=== PATIENT | male | born 2000 | race Two or more races ===

== ENCOUNTER 2025-02-19 14:54 | Emergency (ER) | payer MEDICAID ==
[~2025-02-19] VITALS: Ht 177.8 cm; Wt 86.2 kg
[2025-02-19 15:02] VITALS: TEMP 97.9
[2025-02-19] MEDS: LIDOCAINE VISCOUS 2% UD 15 ML UDC MM ONE (16:33)
[2025-02-19] MEDS ORDERED: dexaMETHasone SOD PHOSPHATE 1 ML ONE (17:32)
[2025-02-19] MEDS ORDERED: KETOROLAC TROMETHAMINE INJ 30 MG/ML VIAL ONE (17:32)
[2025-02-19] MEDS: KETOROLAC TROMETHAMINE INJ 30 MG/ML VIAL IM ONE (17:35)
[2025-02-19] MEDS: dexaMETHasone SOD PHOSPHATE 10 MG/ML VIAL IM ONE (17:35)
[2025-02-19] MEDS ORDERED: PIPERACI/TAZO 3.375GM/D5W 50ML PB IV ONE (18:03)
[2025-02-19] MEDS: PIPERACILLIN /TAZOBACTAM 3.375 G in IV D5W 50 ML IV ONE (18:05)
[2025-02-19] MEDS ORDERED: IOHEXOL-300 100 ML VIAL IV ONE (18:10)
[2025-02-19] MEDS ORDERED: IV NS 0.9% 250 ML IV ONE (18:11)
[2025-02-19 18:13] LABS: CALCIUM, SERUM 9.1 mg/dL (8.5-10.1); CREATININE 0.8 mg/dL (0.6-1.3); PLATELET COUNT (AUTO) 354 K/uL (150-450); RED BLOOD CELL COUNT(AUTO) 5.17 MIL/uL (4.5-6.0); RED CELL DISTRIBUTION WIDTH 13.5 % (11.5-15.0); SODIUM SERUM 137.0 mmol/L (136-145); UREA NITROGEN, BLOOD 11.0 mg/dL (7-18); WHITE BLOOD COUNT (AUTO) 18.7 K/uL (4.3-11.0)
[2025-02-19 18:19] LABS: ASPARTATE AMINOTRANSFERASE 17.0 U/L (15-37); TOTAL PROTEIN, SERUM 8.2 g/dL (6.4-8.2)
[2025-02-19] MEDS ORDERED: AMOX-430 PO (21:18)
[2025-02-19] MEDS ORDERED: IBUP-1953 PO (21:18)
[2025-02-19 21:40] VITALS: BP 120/70; O2SAT 98
[2025-02-20] MEDS ORDERED: dexaMETHasone SOD PHOSPHATE 1 ML ONE (14:08)
[2025-02-20] MEDS ORDERED: KETOROLAC TROMETHAMINE INJ 30 MG/ML VIAL ONE (14:08)
== END 2025-02-19 21:31 | disposition home or self-care (01) ==
LOC: ER 15:03
DX: J36 Peritonsillar abscess (principal); H92.02 Otalgia, left ear; M54.2 Cervicalgia; R05.9 Cough, unspecified; R09.81 Nasal congestion; R50.9 Fever, unspecified
CPT/HCPCS: 99285; 96365; 70491; 85025; 87070; 36415; 87880; 80053; 96372; J1885; J1100; J2543; J7050; Q9967; 86403-TC

== ENCOUNTER 2025-02-20 12:45 | Emergency (ER) | payer MEDICAID ==
[~2025-02-20] VITALS: Ht 177.8 cm; Wt 84.8 kg
[~2025-02-20 12:45] MED LIST: AMOX-430 PO; IBUP-1953 PO
[2025-02-20 13:01] VITALS: TEMP 98.1
[2025-02-20] MEDS: dexaMETHasone SOD PHOSPHATE 10 MG/ML VIAL IM ONE (14:13)
[2025-02-20] MEDS: KETOROLAC TROMETHAMINE INJ 30 MG/ML VIAL IM ONE (14:13)
[2025-02-20] MEDS ORDERED: TETRACAINE/BENZOCAINE/BUTAMBEN 56 GM SPRAY TP ONE (14:50)
[2025-02-20] MEDS: TETRACAINE/BENZOCAINE/BUTAMBEN 56 GM SPRAY TP ONE (15:29)
[2025-02-20 15:41] VITALS: BP 115/75; O2SAT 99
== END 2025-02-20 15:31 | disposition home or self-care (01) ==
LOC: ER 12:51
DX: J36 Peritonsillar abscess (principal); Z79.1 Long term (current) use of non-steroidal anti-inflammatories (NSAID); Z79.2 Long term (current) use of antibiotics

== ENCOUNTER 2025-06-07 11:10 | Emergency (ER) | payer MEDICAID, OTHER ==
[~2025-06-07] VITALS: Ht 177.8 cm; Wt 86.2 kg
[2025-06-07 11:17] VITALS: BP 93/54; TEMP 98; O2SAT 99
[2025-06-07] MEDS ORDERED: ALBU18HF2 INH (11:41)
== END 2025-06-07 11:53 | disposition home or self-care (01) ==
LOC: ER 11:10
DX: J20.9 Acute bronchitis, unspecified (principal); R04.2 Hemoptysis; Z79.1 Long term (current) use of non-steroidal anti-inflammatories (NSAID); Z60.2 Problems related to living alone
CPT/HCPCS: 71045-TC